=== PATIENT | female | born 1985 | race Caucasian/White ===

== ENCOUNTER → 2018-06-30 14:00 | Outpatient (CLI) | payer BC, SELFPAY ==
[2018-07-06 14:46] LABS: HPV Reflexed? NOT INDICATED
== END ==
PROVIDERS: Visit Provider Obstetrics & Gynecology
DX: Z12.4 Encounter for screening for malignant neoplasm of cervix (principal)
CPT/HCPCS: 88175; G0145

== ENCOUNTER → 2018-07-07 06:27 | Outpatient (CLI) | payer BC, SELFPAY ==
[2018-07-07 07:33] LABS: Hematocrit 43.2 % (37-47); Hemoglobin 14.4 g/dl (12.0-15.0); Mean Corp Hgb Conc 33.3 g/gl (32-36); Mean Corpuscular Hgb 30.1 pg (27.0-32.0); Mean Corpuscular Volume 90.4 fL (81-99); Mean Platelet Vol. 10.4 fl (6.2-12.0); Platelet Count 302 K/mm3 (150-450); RBC Distribution Width SD 42.8 fl (35.1-43.9); Red Blood Count 4.78 M/mm3 (4.2-5.4); White Blood Count 6.4 K/mm3 (4.4-11.0)
[2018-07-07 07:45] LABS: Scan Indicated on CBC? Y/N NO
[2018-07-07 08:02] LABS: Estradiol 48.4 pg/mL; Free T3 2.9 pg/mL (2.18-3.98); T4 Free Direct 0.98 ng/dL (0.76-1.46)
[2018-07-07 08:19] LABS: Homocysteine 6.9 umol/L (3.2-10.7)
[2018-07-07 08:40] LABS: Hemoglobin A1c 5.1 % (4.2-6.3)
[2018-07-08 11:54] LABS: Progesterone Level 0.74 ng/mL (See Comment)
== END ==
PROVIDERS: Visit Provider Obstetrics & Gynecology
DX: N96 Recurrent pregnancy loss (principal)
CPT/HCPCS: 36415; 81241; 82670; 83036; 83090; 84144; 84403; 84439; 84443; 84481; 85027

== ENCOUNTER → 2018-11-28 09:59 | Outpatient (CLI) | payer BC, SELFPAY ==
[2018-11-28 14:21] LABS: Progesterone Level 18.51 ng/mL (See Comment)
[2018-11-28 14:30] LABS: hCG Titer Quant., Serum 2988 mIU/mL (<9 non-preg)
[2018-11-28 15:19] LABS: Chlamydia Trachomatis by PCR Negative (Negative); Neisserai gonorrhoeae by PCR Negative (Negative); Probe Check PASS; Sample Adequacy Control PASS; Specimen Processing Control PASS
== END ==
PROVIDERS: Visit Provider Obstetrics & Gynecology
DX: Z11.3 Encounter for screening for infections with a predominantly sexual mode of transmission (principal)
CPT/HCPCS: 36415; 84144; 84702; 87491; 87591

== ENCOUNTER → 2018-11-30 16:51 | Outpatient (CLI) | payer BC, SELFPAY ==
[2018-11-30 18:06] LABS: hCG Titer Quant., Serum 6376 mIU/mL (<9 non-preg)
== END ==
PROVIDERS: Visit Provider Obstetrics & Gynecology
DX: Z32.01 Encounter for pregnancy test, result positive (principal); Z11.3 Encounter for screening for infections with a predominantly sexual mode of transmission
CPT/HCPCS: 36415; 84702

== ENCOUNTER → 2018-12-26 10:38 | Outpatient (CLI) | payer BC, SELFPAY ==
[2017-07-29 13:21] VITALS: BMI 28.4
[2018-12-26 13:32] LABS: Color, Urine Yellow (Yellow); Glucose, Dipstick Normal (Normal); Ketone-Dipstick Negative (Negative); Leukocyte Esterase-Dipstick Negative /ul (Negative); Nitrite-Dipstick Negative (Negative); Occult Blood-Urine Negative /ul (Negative); Protein-Dipstick Negative (Negative); Specific Gravity, Urine 1.005 (1.002-1.030); Urine Bilirubin Dipstick Negative (Negative); Urine Clarity Clear (Clear); Urine Urobilinogen Normal (Normal)
[2018-12-26 13:33] LABS: Absolute Lymphocyte Count 1.86 X10^3/ul (0.83-4.51); Absolute Neutrophil Count 5.8 X10^3/uL (2.0-7.7); Basophil# 0.02 X10^3/uL; Basophil% 0.2 % (0-1); Eosinophil# 0.07 X10^3/uL; Eosinophils% 0.8 % (0-5); Hematocrit 41.8 % (37-47); Hemoglobin 13.8 g/dl (12.0-15.0); Lymphocyte # 1.86 X10^3/ul (4.0); Lymphocyte % 22.1 % (19-41); Mean Corpuscular Volume 90.9 fL (81-99); Mean Platelet Vol. 10.7 fl (6.2-12.0); Monocyte% 8.3 % (0-10); Neutrophil # 5.75 X10^3/uL (2.7-7.7); Neutrophil % 68.5 % (47-70); Platelet Count 378 K/mm3 (150-450); RBC Distribution Width CV 13.4 % (11.6-14.6); White Blood Count 8.4 K/mm3 (4.4-11.0)
[2018-12-26 13:34] LABS: COTININE Drug Screen Negative (<200 ng/mL); POSITIVE COUNT NO; POSITIVE DIFFERENTIAL NO; POSITIVE MORPHOLOGY NO
[2018-12-26 13:45] LABS: Amphetamine Urine VISTA NEGATIVE (<1000 ng/mL); Barbiturate Urine VISTA NEGATIVE (< 200 ng/mL); Benzodiazepine Urine VISTA NEGATIVE (< 200 ng/mL); Cocaine Urine VISTA NEGATIVE (< 300 ng/mL); Ecstacy Urine VISTA NEGATIVE (< 500 ng/mL); Methadone Urine VISTA NEGATIVE (< 300 ng/mL); PCP Urine VISTA NEGATIVE (< 25 ng/mL); THC Urine VISTA NEGATIVE (< 50 ng/mL); Vista UDS pH Range 6
[2018-12-26 13:53] LABS: Thyroid Stim Hormone (TSH) 1.35 uIU/mL (0.358-3.74)
[2018-12-26 14:31] LABS: HIV - WCH Non-Reactive (Nonreactive)
[2018-12-27 08:07] LABS: HEPATITIS B SURFACE AG Negative (Negative); Hep C Antibodies <0.1 s/co ratio (0.0-0.9)
[2018-12-30 03:11] LABS: Prenatal RPR NONREACTIVE (NONREACTIVE)
== END ==
PROVIDERS: Visit Provider Obstetrics & Gynecology
DX: Z34.81 Encounter for supervision of other normal pregnancy, first trimester (principal)
CPT/HCPCS: 36415; 80307; 81002; 82306; 84443; 85025; 86703; 86762; 86803; 87340

== ENCOUNTER → 2019-03-14 11:07 | Outpatient (CLI) | payer BC, SELFPAY ==
[2019-03-14 14:13] LABS: Vitamin D,25 Hydroxy 26.1 ng/mL (29.95-100.01)
== END ==
PROVIDERS: Visit Provider Obstetrics & Gynecology
DX: E55.9 Vitamin D deficiency, unspecified (principal)
CPT/HCPCS: 36415; 82306

== ENCOUNTER → 2019-05-09 08:44 | Outpatient (CLI) | payer BC, SELFPAY ==
[2019-05-09 11:12] LABS: Hematocrit 36.1 % (37-47); Mean Corp Hgb Conc 33.2 g/gl (32-36); Mean Corpuscular Hgb 29.3 pg (27.0-32.0); Platelet Count 368 K/mm3 (150-450); RBC Distribution Width SD 44.3 fl (35.1-43.9); White Blood Count 8.9 K/mm3 (4.4-11.0)
[2019-05-09 11:13] LABS: Glucose Challenge Gest 1H 50g 112 mg/dL (70-140)
[2019-05-09 11:17] LABS: Scan Indicated on CBC? Y/N NO
== END ==
PROVIDERS: Visit Provider Obstetrics & Gynecology
DX: Z34.82 Encounter for supervision of other normal pregnancy, second trimester (principal)
CPT/HCPCS: 36415; 82950; 85027

== ENCOUNTER → 2019-07-05 17:23 | Outpatient (CLI) | payer BC, SELFPAY | PROVIDERS: Referring Provider Obstetrics & Gynecology; Visit Provider Obstetrics & Gynecology | DX: Z36.85 Encounter for antenatal screening for Streptococcus B (principal) | CPT/HCPCS: 87081 ==

== ENCOUNTER 2019-07-09 13:15 | Inpatient (IN) | payer BC, SELFPAY ==
[2019-07-09 13:40] VITALS: BMI 38.2
[2019-07-09] MEDS: Lactated Ringers 1,000 ML 50 ML IV (13:50)
[2019-07-09 14:04] LABS: Absolute Lymphocyte Count 1.55 X10^3/uL (0.83-4.51); Absolute Neutrophil Count 8.4 X10^3/uL (2.0-7.7); Basophil# 0.03 X10^3/uL; Basophil% 0.3 % (0-1); Eosinophil# 0.03 X10^3/uL; Eosinophils% 0.3 % (0-5); Hematocrit 34.7 % (37-47); Hemoglobin 11.4 g/dL (12.0-15.0); Lymphocyte # 1.55 X10^3/ul (4.0); Lymphocyte % 14.3 % (19-41); Mean Corp Hgb Conc 32.9 g/dL (32-36); Mean Corpuscular Hgb 28.6 pg (27.0-32.0); Monocyte# 0.75 X10^3/uL; Monocyte% 6.9 % (0-10); NRBC Flagged by Analyzer 0 % (0-5); Neutrophil # 8.43 X10^3/uL (2.7-7.7); Neutrophil % 77.5 % (47-70); Platelet Count 354 K/mm3 (150-450); RBC Distribution Width CV 14.5 % (11.6-14.6); RBC Distribution Width SD 45.7 fl (35.1-43.9); Red Blood Count 3.99 M/mm3 (4.2-5.4); White Blood Count 10.9 K/mm3 (4.4-11.0)
[2019-07-09] MEDS: Lactated Ringers 500 ML 999 ML IV (17:29)
[2019-07-09] MEDS: 0.9% Saline Lock 10 ML Syringe IV (17:42)
[2019-07-09] MEDS: fentaNYL-bupivacaine (epidural) 100 ML BAG EPIDURAL ×2 (18:08→22:44)
[2019-07-09] MEDS: Lactated Ringers 1,000 ML 200 ML IV (19:15)
--- NOTE | 2019-07-09 19:31 | PCM.HP.BLA ---
History and Physical Date of Admission: 07/09/19 AGE: 34 PARITY(FPAMETL): 0 0 0 2 0 0 0 WKS GEST: 36 wks + 4 days JAYLIN: 08/02/19 Ped: UNDECIDED THIRD TRIMESTER: 256 DAYS History of This : This is a 34-year-old patient 3 para 0 AB 2 who presents to labor and delivery at 36 weeks and 4 days gestation with spontaneous rupture membrane and in early labor. 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 FOB less than pleased about the ... GENERAL - Denies fever, or chills SKIN - Denies skin changes EYES - Denies visual changes EARS - Denies difficulty hearing NOSE - Denies nasal congestion or bleeding MOUTH - Denies sore throat or difficulty swallowing NECK - Denies pain or swelling RESPIRATORY - Denies shortness of breath or wheezing CARDIOVASCULAR - Denies palpitations or chest pain GASTROINTESTINAL - Denies nausea, vomiting, diarrhea, constipation GENITOURINARY - spotting, cramping MUSCULOSKELETAL - Denies joint or muscle pain NEUROLOGICAL - Denies localized numbness or weakness PSYCHIATRIC - Denies depression or anxiety ENDOCRINE - Denies heat or cold intolerance, weight loss or gain HEMATO-IMMUNOLOGIC - Denies excessive bleeding with cuts PAST HISTORY: Breast/Ovarian/Colon Cancers - Denies Infections - Chicken pox Illnesses - no serious past illnesses Accidents - no injuries of consequence History of Abnormal PAPS - ASCUS, HPV HR POS 09/2012, Neg 03/2013, Neg 03/2014 Hospitalizations - see surgery SURGICAL HISTORY: 1. Tonsilectomy 2. [place] teeth 3. 07/29/[address] Celestina Antonio MENSTRUAL HISTORY: LMP Known?- DefiniteAmount/Duration - 4-5 days, Regularity - Regular, Frequency - monthly days, LMP - 10/10/18 PAST PREGNANCIES: Total Pregnancies - 3; Full Term Pregnancies - 0; Premature - 0; Abortions, Induced - 0; Abortions, Spontaneous - 2; Ectopics - 0; Multiple Births - 0; Living Children - 0 FAMILY HISTORY: PaternalGrandparent - FH: Atrial fibrillation; SOCIAL HISTORY: Alcohol Use - denies drinking Smoking - stopped smoking 01/2015 Diet - balanced Diet Lifestyle - moderate stress lifestyle Exercise - minimal Seat Belt Use - always Employer - [employer] Job Description - Accounting Illicit Drug Use - denies use of street drugs Sexual Activity - multiple sexual partners Hours Worked - 40 hours per week Spouse-Sig Other Name - Skip Donovan Spouse-Sig Other Occupation - Self employed Children Name(s) - Partner has 3 boys Control - PHYSICAL EXAMINATION Height- 62.00 inch CONSTITUTIONAL - NAD, well nourished, and well developed SKIN - No rash, lesions, or ulcers HEENT - Normocephalic, PERRLA, EOMI LYMPH NODES - Palpation of lymph nodes in neck and groins within normal limits LUNGS - CTA x2 without wheezes, crackles or rales CARDIAC - Regular rate and rhythm without rubs, murmurs, or gallops ABDOMEN - Without hepatosplenomegaly, distention, masses, rebound, or guarding; normal bowel sounds; no hernias EXTREMITIES - No edema or calf tenderness NEUROLOGICAL - Cranial nerves II-XII grossly intact PSYCHIATRIC - A and O to time, place, person, mood and affect DETAILED PELVIC EXAM External Genitial Vagina - non-tender without lesions Urethra/Urethral Meatus - non-tender Bladder - non-tender Vagina - vaginal nash are pink and moist without loss of rugae and no evidence of atropy Cervix - gross ROM Uterus -AGA Adnexa - clear without masses or tenderness Antepartum Flow Sheet Highlights: [facility] Jul 02 36 211 132/86 1+ - 36 ? 1 25 -3 [facility] Jun 02 34 200 100/70 1+ - 35 EL[facility] Jun 02 31 190 120/74 tr - 32 - [facility] May 02 30 186 124/82 tr - 30 ELB May 02 27 181 126/82 - - 29 - DS Apr 04 23 178 126/78 tr - 24 ? DS March 04 19 179 130/70 - - 20 ? DS 22 Apr 3 16 175 118/62 - - 18 ? DS Dec 4 12 172 136/66 - - ? DS Dec 4 8 172 128/64 tr - DS Dec 2 9 173 110/64 tr - SHORT ANTEPARTUM NOTE(S): Sep Good FM,Edema increased 2+,GBS Today LARC form signed Jun feeling well. Hands tingling from swelling. Jun reviewed FM, PTL, edema May Good FM,Feeling Well May doing well, glucola today Apr doing well, glucola and inst provided and reviewed 14 March see note Jan see note Dec No problems Dec No problems Dec doing well, NOB rescheduled LONG ANTEPARTUM NOTES: Jul Feeling well; reports active FM; denies nausea, UCs, VB, LOF, CARMONA, RUQ pain or visual changes; bialteral LE edema, + pitting, none noted on hands or face; she did not wear support stockings today, says it does resolve once she is able to put her feetr up for a few hours; GBS swab done todayl discussed warning signs, s/s PTL; RTO 1 week(s)for PNV; Jun Feeling generally well, reports active movement, denies VB, LOF, RUQ pain, CARMONA or visual changes. Does have some bilateral lower extremity edema, wearing support stockings; also reportrs some intermittent tingling in fingertips, works on a computer daily; discussed increasing fluids, hand position during work and sleep for tingling in hands, call if s/s worsen; discussed s/s PTL and s/s to report; GBS at next visit Jun Hgb 12 g/dl. Glucola 112. WNL RTO In 2 wk for PNV. EB May GLucola CBC and repeat Vit D today. Notify of results as available. Reviewed s/sx of PTL. RTO in 2 wk for PNV EB Hgb 12.0 g/dl. and glucola 112. Vit D was NOT redrawn. Unable to run off blood in lab. Advised by phone of all and recommend NOT redraw, but may do this if pa requests. Vit D level inc from 8 to 26 (normal 30-100) and was given 50,000 IU twice weekly. Rec. continue OTC VIt D at 2000 IU daily EB Apr No complaints. Good movement. GCT and CBC next visit. 22 March Angie calling @ 21 wks miserable with sinus congestions, so stuffy, can barely breathe thru her nose. Drainage is mostly clear, occas a little yellow. Lots of drainage down back of throat, making her gag and vomit. T 99.8 on Sat, went to urgent care--rapid strep was negative. No sore throat now, Temp is 97.1. Has tried Benadryl @ night, Claritin during the day, no relief. Advised trying plain Mucinex, saline nasal spray, use cough drops, warm tea w/lemon for cough from sinus drainage, no dairy or sugar in diet as both increase mucous production. Can she use Afrin, once q 12 hrs? It is a Cat C. Advised I would check with you. 14 March Anatomical US performed today with no anomalies noted. There is normal growth, placentation, and umbilical cord. Feels movement. Vitamin D level repeated today. Jan Anatomical US scheduled for next visit. Jan Declines genetics testing, no CF. She is not sure if she has felt FM or not yet. Reveiwed expected FM over the next 4-6 wks. Voicing no concerns today. kbm Dec Doing well. No complaints. No bleeding. labs normal. O+ blood type. Dec Doing well. One episode of spotting last week. US c/w dating with good heart beat. NOB nurse visit and labs done today. Dec Angie is here for NOB nurse visit with JAYLIN Aug 02, 2019 planning a vag del at [facility], unsure of epidural or ped care post discharge. She does plan to breastfeed. She is a G 3 P 0 who works FT at [employer] in [employer]. She lives in her own home. FOB is Skip, lives separately with three teen sons and is less than pleased about this . Angie said he was good with the first she lost but w the second loss told her he didn't want more children. States he knew sex was unprotected but now He's distant. Her parents are unaware of the pg but she plans to inform them in a few weeks and knows they'll be very supportive. She has excellent FMLA coverage at work, a good job and her own home. She says she can do this without him if she has to. Tearful during this discussion. Angie has NKA to drugs, food or latex. She has some mild seasonal allergies in spring and summer. Her diet is fairly balanced but calcium intake is quite low. She drinks about one cup of coffee daily and at least two quarts of water. She quit smoking in mid Nov 2018 upon realizing the . No street drug history except marijuana and last use was about 18 mo ago. She drinks alcohol socially but not in pg. 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 Enc walking 20 min q day. Genetic Screening form completed noting only her Prometrium. She declines AFP and CF tests. Warning signs in pg discussed as well as reaching office after hours, otc meds ok to take, lifting restriction of 20-25 #, importance of protein in diet, wearing seatbelt low on her abd w understanding voiced. She has a copy of What to Expect. She's had chickenpox and they have no cats though she is aware of litter box issues. US done and routine labs drawn adding Vit D level d/t her chronic low milk intake. Office Childbirth and BF classes discussed and suggested. Enc to call w any concerns. Visit lasted just over one hour. Joaquin SIMON. Dec Doing well. Some light spotting. Continues to take progesterone supplements as directed. US today with pole with normal heart beat. EDC established by US today. Flying to [place] today--instructions given to stay well hydrated and stretch legs periodically. Nov Angie is 33 yrs old here for Missed Menses. FOB same as all of her pregnancies, Skip Donovan, who has 3 boys of his own. By LMP 10/10/18, she could be 7 wks, JAYLIN 07/17/19. Reports periods occurring q 4-5 wks. Hx 2 prior SAB's, both 6-7 wks. D+C with 1st. Reporting breast tenderness, which has started to subside, very light pink spotting beginning in Sat, occassional cramping. She is tearful, thinking she is miscarrying again. UPT positive here. Taking a daily PNV. Stopped smoking with knowledge of . Reviewed importance of hydration. Most recent pap 06/30/18, negative. Hx Negative Factor V Leiden. Still working in [employer]. Brochure with otc meds given this morning, but will wait on book as she is not ready to take this yet. Advised no use of NSAIDS. kbm PRIOR HISTORY: 1 07/29/17 8 wks 0 hrs Sab 2 04/01/18 4 wks 0 hrs Vag Number 1 baby complications-->: D Number 2 baby complications-->: VERY EARLY. ALLERGIES: NKDA MEDICATIONS: DHA 200 mg capsule Vitamin D2 50,000 unit capsule Phone Messages (past 60 days)- 1. DATE:07/07/19 11:16:05FROM:LEESATO:MESSAGE:Lab calling to report GBS negative but did grow Group G. Per Dr Traylor that did not need to be on report. FYI only. LMT 2. DATE:06/19/19 15:48:23FROM:EDWINA:MESSAGE:form signed and faxed back. jlb 3. DATE:06/19/19 11:06:17FROM:GAILTO:MESSAGE:Form for maturnity support belt printed and to you to sign. Thank you. 4. DATE:06/19/19 11:00:59FROM:SONYAWTO:MESSAGE:Please see Rx. Thank-you! 5. DATE:05/29/19 09:14:32FROM:JUDITHTO:MESSAGE:Form from Maternity Compression from [facility] for Back/Pelvic Support Brace, signed by EB and faxed to [phone]. AUDRA 6. DATE:05/26/19 10:15:18FROM:EDWINA:MESSAGE:Form printed and placed at EB's desk for signature when she returns. jlb 7. DATE:05/26/19 10:08:03FROM:TAMMYTO:MESSAGE:see attached Rx. tkg 8. DATE:05/11/19 14:45:04FROM:EDWINA:MESSAGE:form signed and faxed back. jlb 9. DATE:05/11/19 12:35:00FROM:EDWINA:MESSAGE:Form printed and placed at Dr Traylor desk for signature and will need faxed back. jlb 10. DATE:05/11/19 12:20:26FROM:SONYAWTO:MESSAGE:Please see Rx. Thank-you! Labs for : ANGIE WHITMAN since 11/05/2018 ORDER DATEIN DESCRIPTION VALUE UNITS RANGE A+ COMMENT TYPE AND SCREEN 07/09/19 Reason for Type AND Screen/Red Cells: [facility]~[address] [place], [address]~ BLOOD TYPE GEL O POSITIVE N ANTIBODY SCREEN NEGATIVE N CBC W/DIFF, AUTOMATED 07/09/19 NOTE Original Ordering Provider: Ray Marie WBC 10.9 K/mm3 4.4-11.0 RBC 3.99 M/mm3 4.2-5.4 L HGB 11.4 g/dL 12.0-15.0 L HCT 34.7 % 37-47 L MCV 87.0 fL 81-99 MCH 28.6 pg 27.0-32.0 MCHC 32.9 g/dL 32-36 RDW CV 14.5 % 11.6-14.6 RDW SD 45.7 fl 35.1-43.9 H PLT 354 K/mm3 150-450 MPV 11.0 fl 6.2-12.0 NEUT% 77.5 % 47-70 H LY% 14.3 % 19-41 L MONO% 6.9 % 0-10 EO% 0.3 % 0-5 BASO% 0.3 % 0-1 IM GRAN % 0.700 % 0.0-0.9 IG% - Immature Granulocytes (promyelocytes, myelocytes and metamyelocytes) > 1% indicates that a LEFT SHIFT is Present. ABSOLUTE NEUT 8.4 X10 3/uL 2.0-7.7 H ABSOLUTE LYMPH 1.55 X10 3/uL 0.83-4.51 NRBC, FLAGGED 0 % 0-5 CULTURE, GROUP B STREPTOCOCCUS 07/05/19 NOTE Original Ordering Provider: Ray Marie ANDREA Culture Group B Beta Streptococcus is not isolated. Reviewed by RAY CBC-COMPLETE BLOOD CNT NO DIFF 05/09/19 NOTE Original Ordering Provider: Pamela Traylor WBC 8.9 K/mm3 4.4-11.0 RBC 4.10 M/mm3 4.2-5.4 L HGB 12.0 g/dl 12.0-15.0 HCT 36.1 % 37-47 L MCV 88.0 fL 81-99 MCH 29.3 pg 27.0-32.0 MCHC 33.2 g/gl 32-36 RDW CV 14.0 % 11.6-14.6 RDW SD 44.3 fl 35.1-43.9 H PLT 368 K/mm3 150-450 MPV 11.0 fl 6.2-12.0 Reviewed by PAMELA GLUCOSE CHALLENGE GEST 1H 50G 05/09/19 NOTE Original Ordering Provider: Pamela Traylor GLU GEST 50G 1H 112 mg/dL 70-140 Reviewed by PAMELA VITAMIN D,25 HYDROXY 03/14/19 NOTE Original Ordering Provider: Celestina Antonio VITAMIN D 25-OH 26.1 ng/mL 29.95-100.01 L Vitamin D 25(OH) Status Range Deficiency <20 ng/mL (50nmol/L) Insufficiency 20 - 30 ng/mL (50 - 75 nmol/L) Sufficiency 30 - 100 ng/mL (75 - 250 nmol/L) Toxicity >100 ng/mL (>250 nmol/L) Reviewed by CELESTINA RPR 12/26/18 NOTE Original Ordering Provider: Celestina Antonio RPR NONREACTIVE NONREACTIVE Reviewed by CELESTINA HEPATITIS C ANTIBODIES 12/26/18 NOTE Original Ordering Provider: Celestina Antonio HEP C AB <0.1 s/co ratio 0.0-0.9 Negative: < 0.8 Indeterminate: 0.8 - 0.9 Positive: > 0.9 The CDC recommends that a positive HCV antibody result be followed up with a HCV Nucleic Acid Amplification test (743361). Reviewed by CELESTINA HEPATITIS B SURFACE AG 12/26/18 NOTE Original Ordering Provider: Celestina Antonio HB SURF AG Negative Negative Performed at: [address] [id number] Aboriginal Education Worker Coordinator: Antoine Sosa PhD, Phone: [phone] Reviewed by CELESTINA T AND S-NO CHARGE W/PNP 12/26/18 Reason for Type AND Screen/Red Cells: Surgery? [facility]~[address] [place] [place], [address]~ BLOOD TYPE GEL O POSITIVE N AB SCREEN GEL NEGATIVE N Reviewed by CELESTINA URINALYSIS, ROUTINE (DIPSTICK) 12/26/18 NOTE Original Ordering Provider: Celestina Antonio COLOR Yellow Yellow CLARITY Clear Clear GLUCOSE, UR Normal mg/dl Normal BILIRUBIN URINE Negative mg/dL Negative KETONE UR Negative mg/dl Negative SP.GR. DIPSTX 1.005 1.002-1.030 PH UR 7.0 5.0 - 8.0 PROT DIPSTX Negative mg/dl Negative UROBILI Normal mg/dl Normal NITRITE UR Negative Negative OCCULT BLOOD-UR Negative /ul Negative LEUK ESTERASE Negative /ul Negative Reviewed by CELESTINA HIV - [facility] 12/26/18 NOTE Original Ordering Provider: Celestina Antonio HIV [facility] Non-Reactive Nonreactive Reviewed by CELESTINA VITAMIN D,25 HYDROXY 12/26/18 NOTE Original Ordering Provider: Celestina Antonio VITAMIN D 25-OH 8.0 ng/mL 29.95-100.01 L Vitamin D 25(OH) Status Range Deficiency <20 ng/mL (50nmol/L) Insufficiency 20 - 30 ng/mL (50 - 75 nmol/L) Sufficiency 30 - 100 ng/mL (75 - 250 nmol/L) Toxicity >100 ng/mL (>250 nmol/L) RUBELLA IGG 12/26/18 NOTE Original Ordering Provider: Celestina Antonio RUBELLA IGG 12.0 IU/mL Antibody results Interpretation of Immune Status < 5 IU/ml Presumed Non-immune 5 - < 10 IU/ml Equivocal > or = 10 IU/ml Presumed Immune Reviewed by CELESTINA THYROID STIM HORMONE (TSH) 12/26/18 NOTE Original Ordering Provider: Celestina Antonio TSH 1.35 uIU/mL 0.358-3.74 Reviewed by PAMELA NICOTINE URINE DRUG SCREEN 12/26/18 NOTE Original Ordering Provider: Celestina Antonio TO BE CONFIRMED CONFIRMATORY TESTING FOR ALL POSITIVE URINE DRUG SCREEN RESULTS WILL ONLY BE SENT OUT UPON PHYSICIAN ORDER. The results of Urine Drug Screen methods provide only preliminary analytical test results. A more specific alternate chemical method must be used in order to obtain a confirmed analytical result. Gas chromatography/mass spectrometery (GC/MS) is the preferred confirmatory method. Clinical consideration and professional judgement should be applied to any drug of abuse test result, particularly when preliminary positive results are used. COT DRG SCREEN Negative <200 ng/mL Cotinine is the first-stage metabolite of Nicotine. Reviewed by PAMELA URINE DRUG SCREEN (VISTA) 12/26/18 NOTE Original Ordering Provider: Celestina Antonio TO BE CONFIRMED CONFIRMATORY TESTING FOR ALL POSITIVE URINE DRUG SCREEN RESULTS WILL ONLY BE SENT OUT UPON PHYSICIAN ORDER. VISTA Urine Drug Screen methods provide only preliminary analytical test results. A more specific alternate chemical method must be used in order to obtain a confirmed analytical result. Gas chromatography/mass spectrometery (GC/MS) is the preferred confirmatory method. Clinical consideration and professional judgement should be applied to any drug of abuse test result, particularly when preliminary positive results are used. URINE TCA TESTING MUST BE ORDERED SEPARATELY. USE TEST MNEMONIC: [facility] UDS PH 6 AMPHETAMINES NEGATIVE <1000 ng/mL BARBITIURATES NEGATIVE < 200 ng/mL BENZODIAZIPINE NEGATIVE < 200 ng/mL COCAINE NEGATIVE < 300 ng/mL ECSTACY NEGATIVE < 500 ng/mL METHADONE NEGATIVE < 300 ng/mL OPIATES NEGATIVE < 300 ng/mL PCP NEGATIVE < 25 ng/mL THC NEGATIVE < 50 ng/mL Reviewed by PAMELA CBC W/DIFF, AUTOMATED 12/26/18 NOTE Original Ordering Provider: Celestina Antonio WBC 8.4 K/mm3 4.4-11.0 RBC 4.60 M/mm3 4.2-5.4 HGB 13.8 g/dl 12.0-15.0 HCT 41.8 % 37-47 MCV 90.9 fL 81-99 MCH 30.0 pg 27.0-32.0 MCHC 33.0 g/gl 32-36 RDW CV 13.4 % 11.6-14.6 RDW SD 44.0 fl 35.1-43.9 H PLT 378 K/mm3 150-450 MPV 10.7 fl 6.2-12.0 NEUT% 68.5 % 47-70 LY% 22.1 % 19-41 MONO% 8.3 % 0-10 EO% 0.8 % 0-5 BASO% 0.2 % 0-1 IM GRAN % 0.100 % 0.0-0.9 IG% - Immature Granulocytes (promyelocytes, myelocytes and metamyelocytes) > 1% indicates that a LEFT SHIFT is Present. ABSOLUTE NEUT 5.8 X10 3/uL 2.0-7.7 ABSOLUTE LYMPH 1.86 X10 3/ul 0.83-4.51 Reviewed by PAMELA HCG TITER QUANT., SERUM 11/30/18 NOTE Original Ordering Provider: Celestina Antonio HCG QUANT. 6376 mIU/mL <9 non-preg H Reviewed by CELESTINA HCG TITER QUANT., SERUM 11/28/18 NOTE Original Ordering Provider: Celestina Antonio HCG QUANT. 2988 mIU/mL <9 non-preg H Reviewed by CELESTINA PROGESTERONE LEVEL 11/28/18 NOTE Original Ordering Provider: Celestina Antonio PROGESTERONE 18.51 ng/mL See Comment Progesterone Reference Table: UNITS Female: Follicular 0.15 - 1.40 ng/mL Luteal 3.34 - 25.56 ng/mL Mid-luteal 4.44 - 28.03 ng/mL Postmenopausal 0.0 - 0.73 ng/mL : 1st Trimester 11.22 - 90.00 ng/mL 2nd Trimester 25.55 - 89.40 ng/mL 3rd Trimester 48.40 -422.50 ng/mL Reviewed by CELESTINA CT/[facility] BY PCR 11/28/18 NOTE Original Ordering Provider: Celestina Antonio [facility] PCR Negative Negative NG BY PCR Negative Negative Reviewed by CELESTINA PROVIDER SIGNATURE ( REQUIRED) Impression and Plan: 36+ week intrauterine with spontaneous rupture of membrane in early labor. Expect spontaneous vaginal delivery.
[2019-07-09] MEDS: Mag Hydrox/Al Hydrox/Simeth 30 ML UDC PO (19:51)
[2019-07-09] MEDS: Betamethasone/Betamethasone 30 MG/5 ML Vial 12 MG IM (21:46)
[2019-07-10] VITALS (13 sets, daily range): BP systolic 109–137; BP diastolic 62–77; PULSE 98–120; RESP 15–18; TEMP 36.8–37.1; O2SAT 94–98
[2019-07-10] MEDS: Lactated Ringers 1,000 ML IV (00:51)
[2019-07-10] MEDS: Mag Hydrox/Al Hydrox/Simeth 30 ML UDC PO ×4 (01:01→14:33)
[2019-07-10] MEDS: Oxytocin 30 units/NS 500 ml 30 UNITS/500 ML IV.SOLN IV (03:38)
[2019-07-10] MEDS: fentaNYL-bupivacaine (epidural) 100 ML BAG EPIDURAL ×3 (04:04→13:18)
[2019-07-10] MEDS: Lactated Ringers 1,000 ML 200 ML IV ×2 (06:21→11:58)
--- NOTE | 2019-07-10 07:35 | PCM.PN.BLA ---
Progress Note LABOR PROGRESS NOTE -- labor 36 5/7 wk EGA betamethasone given Comfortable with epidural. lying on R side and starting to feel just a little at LLQ (position change needed) AVSS Pitocin augmentation EFM/IFM: 130-140s avg variaiblity accels. Occasional variable, occasional late UCs ? adequacy CX last check A/P; 36 5/7 wk EGA labor. Pitocin augmentation, but ? adequacy of UCs. Inc pitocin per protocol. watch progress, descent, tolerance of labor. consider amnioinfusion prn.
--- NOTE | 2019-07-10 12:58 | PN_ITS ---
Progress Note LABOR PROGRESS NOTE Comfortable w/ Epidural AVSS Pitocin turned down to 6 mIU/min 2/2 FHR with late decelerations EFM/IFM 140-150s avg variability. Accels. occasional lates, resolved with dec Pitocin UCs q 4-12 or 13 mins. CX: 9/90/-1 per last RN check A/P: 36 5/7 wk EGA labor. PCN for labor. Betamethasone given . Con tinue Pitocin prn to adequate mVUs. Watch progress, descent and tolerance of labor. narrow pelvis noted by nursing staff.
[2019-07-10] MEDS: Cefazolin 2 GM in 0.9% Normal Saline 100 ML IV (16:20)
--- NOTE | 2019-07-10 16:59 | DCINST_ITS ---
Discharge Diet: No Restrictions Discharge Activity: May not drive while taking narcotic pain medications., May Shower, May Take a Tub Bath May resume sexual activity in: 4-6 weeks Lifting Restrictions: 20 pounds Additional Activity Instructions:: Nothing in the vagina for 4-6 weeks. You may return to work/school in 6 weeks. Change Dressing in (Days):: 7 Remove Dressing in (days):: 7 Cleanse incision/area with: Soap & Water, Keep Dressing Clean & Dry Additional Instructions: If you experience any of the following, contact your healthcare provider. * Bleeding that soaks a pad every hour for 2 hours * Fever 100.4 or higher * Unrelieved incision or abdominal pain * Swelling, redness, discharge or bleeding from your incision * Problems urinating (including inability to urinate or burning while urinating). * Visual changes * Severe headache * Flu-like symptoms * Pain or redness in one of both of your breasts * Pain, warmth, tenderness or swelling in your legs, especially the calf area * Frequent nausea and vomiting * Symptoms of depression or anxiety If you experience any of the following, call 911 or go to the nearest Emergency Room. * Chest pain * Problems breathing * Seizure activity * Partial or complete paralysis of a body part, slurred speech, weakness or drooping of the face, or a sudden inability to walk or hold your balance Allergies/Adverse Reactions: Allergies No Known Allergies Allergy (Verified 07/28/17 13:36) Medications to take at Discharge Ibuprofen [Motrin] 800 mg PO TID PRN PRN #30 tablet 07/29/17 Oxycodone [Oxyir] 5 mg PO Q4H PRN PRN #10 tablet 07/29/17 Docusate Sodium [Colace] 100 mg PO BID #30 cap 07/10/19 Naproxen [Naprosyn] 250 - 500 mg PO TID PRN PRN #30 tab 07/10/19 Oxycodone [Oxyir] 5 - 10 mg PO Q6H PRN PRN 3 Days #15 tablet 07/10/19 Polyethylene Glycol 3350 [Miralax] 17 gm PO DAILY PRN #14 packet 07/10/19 The following prescriptions were given: Docusate Sodium [Colace] 100 mg PO BID #30 cap Transmission Status: Pending to [facility] Polyethylene Glycol 3350 [Miralax] 17 gm PO DAILY PRN #14 packet PRN Reason: Constipation Transmission Status: Pending to [facility] Naproxen [Naprosyn] 250 - 500 mg PO TID PRN PRN #30 tab PRN Reason: Mild-Mod Pain (1-03/10) Transmission Status: Pending to [facility] Oxycodone [Oxyir] 5 - 10 mg PO Q6H PRN PRN 3 Days #15 tablet PRN Reason: Mod-Severe Pain (-08/10) Transmission Status: Sent to [facility] Follow-Up: Call to make an appointment with your doctor for an incision check in 1-2 weeks. You will also need a 6 week post- follow up appointment. Test results from this visit will be discussed in further detail at your follow- up appointment, if applicable. Please Follow Up With: Pamela Traylor MD - [phone] When: Call to make an appointment for an incision check in 2 weeks. Proposed Discharge Date: 07/13/19
--- NOTE | 2019-07-10 17:01 | PCM.OPRPT ---
Delivery Classification: DALLAS Final JAYLIN: 08/02/19 Final JAYLIN Source: US <20 weeks Gestational age: 36 Weeks and 5 Days windlace machine operator: Naz Hebert Date of Procedure: 07/10/19 Pre-Operative Diagnosis: 36 5/7 wk Failure to progress (arrest at 9 cm) Post-Operative Diagnosis: Same Indications: Failure to progress for 6 hr, with arrest of dilation at 9 cm Description of Procedure: Narrative account: After the risks, benefits and alternatives of the procedure were reviewed with the patient, informed consent was obtained. The patient was taken to the Operating room with an IV running, Lake catheter in place, and epidural catheter in place. The epidural was not working and was removed. She was placed in a seated position on the operating table for placement of the spinal. Once the spinal had been administered, she was briefly frog-legged for vaginal vault prep, and then repositioned to dorsal supine position with leftward displacement of the uterus, and prepped and draped in the usual sterile fashion. Once the spinal was deemed adequate, a Pfannenstiel skin incision was created using the knife. The incision was carried down to the rectus fascia using the knife. The fascia was nicked in the midline. The fascial incision was extended bilaterally using curved Maldonado scissors. The superior aspect of the fascial incision was grasped with Monica clamps and tented up and the underlying rectus abdominal muscles were dissected free. In a similar manner, the inferior aspect of the facial incision was grasped with Monica clamps tented up and the underlying rectus abdominal muscles were dissected free. The rectus abdominis muscles were in the midline and the peritoneum was identified and entered by blunt dissection high in the incision. The peritoneum was stretched laterally and a bladder blade was inserted. A bladder flap was created along the lower uterine segment with Metzenbaum scissors . The uterine incision was then created using Metzenbaum scissors. The operators fingertips were used to extend the uterine incision by blunt dissection in a caudad- cephalad orientation . Clear fluid was noted at amniotomy. The vertex was then delivered atraumatically through the incision. The OP and nares were bulb suctioned on the abdomen. The shoulders delivered easily . The cord clamped x two and cut. And the infant was handed off to the nurse awaiting delivery after briefly showing her to her mother and grandmother. The baby had a spontaneous, vigorous cry. The placenta was then delivered from the fundal position. The uterus was exteriorized and cleared of clots and debris . The uterine incision was repaired with 1 Vicryl in a running locked fashion. A second imbricating layer was then placed, using 1 Monocryl in running nonlocked fashion. Bovie cautery was used to treat any bleeding areas . Excellent hemostasis was noted. At this point the uterus was returned to the abdominal cavity. The gutters were cleared of clots and debris and the incision at the uterus was inspected. Surgicel powder was applied along the entire incision for continued hemostasis. Excellent hemostasis was noted. The peritoneal edges were reapproximated in the midline with a series of interrupted vertical mattress stitches of 1 Vicryl. Surgicel was applied to this layer. Excellent hemostasis was noted at the subfascial space Surgicel was dusted over this layer as well. The fascia was closed in a running nonlocked fashion with a Stratofix. The Subcutaneous fatty tissue was Bovie cauterized as needed for hemostasis. Surgicel was liberally dusted at this layer to prevent seroma formation. This layer was then reapproximated in a single layer closure of running 3-0 Vicryl to eliminate space. The skin edges were closed in a Subcuticular stitch of 4-0 Monocryl. The incision was cleansed. Cavilon, Steristrips, and Mepilex dressing were applied to the skin . The patient was then transferred to the recovery room bed in stable condition after tolerating the procedure well. Sponge, lap, needle and instrument counts correct times two. Medications given preop and intraoperatively included: Ancef 2 gm and Azithromycin 500 mg IV (for SROM) were given guest relations coordinator to the operating room. The patient also received Pitocin given IV after cord clamp, and Toradol 30 mg IV times one. For a complete listing of medications given preop and intraoperatively, please see the anesthesia record. Amniotic Membrane Rupture Type: Spontaneous Amniotic Fluid Description: Clear Placenta Disposition: [facility] Specimen(s) sent to pathology: cord gases, blood type Drain: Lake to straight drain Fluids Replaced: LR Cord Entanglement: None Cord Vessel Description: 3 Vessels Infant Gender: Female (1 minute): 8 (5 minute): 9 Delayed cord clamping: No Antibiotic Given: Ancef 2 grams IV x1 Complications: None - Admit VTE Documentation VTE Present on Admission: No VTE Mechan Device Prophylaxis: SCD's VTE Pharm Prophylaxis ordered?: No
[2019-07-10] MEDS: Oxytocin 30 units/NS 500 ml 30 UNITS/500 ML IV.SOLN 167 UNITS IV (17:20)
[2019-07-10] MEDS: Ketorolac 30 MG/ML Syringe IV (19:01)
[2019-07-10] MEDS: Ondansetron 4 MG/2 ML Vial IV (19:12)
[2019-07-10] MEDS: Lactated Ringers 1,000 ML 100 ML IV (20:25)
[2019-07-11] VITALS (12 sets, daily range): BP systolic 94–135; BP diastolic 54–81; PULSE 92–108; RESP 16–20; TEMP 36.6–37.2; O2SAT 92–99
[2019-07-11] MEDS: 0.9% Saline Lock 10 ML Syringe IV ×5 (00:47→23:45)
[2019-07-11] MEDS: Ketorolac 30 MG/ML Syringe IV ×4 (00:47→18:14)
[2019-07-11 06:33] LABS: Hematocrit 23.5 % (37-47); Hemoglobin 7.7 g/dL (12.0-15.0); Mean Corp Hgb Conc 32.8 g/dL (32-36); Mean Corpuscular Hgb 28.5 pg (27.0-32.0); Mean Platelet Vol. 10.6 fl (6.2-12.0); Platelet Count 235 K/mm3 (150-450); RBC Distribution Width CV 15.2 % (11.6-14.6); RBC Distribution Width SD 47.8 fl (35.1-43.9); White Blood Count 14.2 K/mm3 (4.4-11.0)
[2019-07-11] MEDS: Lactated Ringers 1,000 ML 100 ML IV (06:41)
--- NOTE | 2019-07-11 07:45 | PCM.PN.OB ---
Subjective: POD#1 Primary C section Doing well. Nursing. Pain control OK. Minimal bleeding. Would like to shower. Objective: sitting up in bed, nursing baby. - Physical Exam General: Alert, Oriented x3, Cooperative, No apparent distress HEENT: Atraumatic, EOMI Neck: Supple Abdomen: Soft - Fundus firm NT at umbilicus. Upper abdomen softly distended and tympanitic Skin: Incision - Mepilex dressing CDI. Psych/Mental Status: Normal Affect Vital Signs Temp Pulse Resp BP Pulse Ox 98.3 F 96 18 94/54 L 93 /08/19 01:15 07/11/19 06:15 07/11/19 06:15 07/11/19 03:15 07/11/19 06:15 Oxygen Delivery Method Room Air Weight: 95 kg Body Mass Index (BMI) 38.2 Intake and Output for Last 24 Hours //07/10/19 07/11/19 23:59 23:59 23:59 Intake Total 2195.00 / 2195.00 6366.74 / 6366.74 1800 / 1800 Output Total 1850 / 1850 350 / 350 Balance 2195.00 / 2195.00 4516.74 / 4516.74 1450 / 1450 Laboratory Tests Past 24 Hrs 07/11/19 06:20 WBC 14.2 H RBC 2.70 L Hgb 7.7 L Hct 23.5 L MCV 87.0 MCH 28.5 MCHC 32.8 RDW Std Deviation 47.8 H RDW Coeff of Tram 15.2 H Plt Count 235 MPV 10.6 Medical Necessity - Tobacco Use Smoking Status: Former smoker Assessment/Plan POD#1 Primary C section. Stable postop. Inc diet and activity as tolerated. D/C Lake later today for voiding trial. S/L IV for continued Toradol. May shower Postop acute blood loss anemia. Iron daily Continue routine postop care.
[2019-07-11] MEDS: Ferrous Sulfate 325 MG Tablet PO (12:08)
--- NOTE | 2019-07-11 15:20 | CASEMGMT ---
Social Work Referral Date: 07/11/19 Date of Assessment: 07/11/19 Reason for Consult: Mother of baby (MOB) with history of THC usage Informant: Chart, MOB, Nursing staff. Personal Status Mentation: MOB alert and oriented x3 Present during assessment: MOB and MOB?s mother Hx : 3 Hx Para: 0 Gender: Female Infant Name: Corina Donovan (1min): 8 (5min): 9 Care: Adequate Alleged father: Kelby Donovan Alleged father involved: ?It is complicated? Length of Relationship with alleged father of baby: 7 years FOB Mental Health/AOD/Domestic Violence Hx: MOB denies any history of mental health, abuse, or substance abuse for father of baby (FOB). FOB Employment: Self-Employed. Number of Children in the home: This will be first child for MOB. Custody Comments: This is first child for MOB. FOB has three other children ages, 12, 15, and 17. Living Arrangements: MOB lives alone in own home with plan for infant to discharge to home with MOB. FOB has own home where FOB lives with his three sons. 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 MOB stating to feel safe with FOB and to have support if FOB is ?not in the picture.? MOB stating that was not planned but has been accepted by MOB. MOB stating to have had two miscarriages in the past and that FOB ?had a hard time with this.? MOB stating that FOB was not initially excited about infant and was planning to not come to the hospital, but FOB did end up coming to the hospital and has held and been around infant. MOB stating to be hopeful that FOB will be supportive of and develop a connection. MOB stating that FOB?s three son?s did come by the hospital yesterday and were excited to see infant. Supports: MOB stating main support system is MOB?s parents. MOB identifying FOB as a support as well. Plan is for MOB?s mother to watch when MOB returns to work. Transportation: MOB denies any transportation concerns. Substance Abuse Hx and Current Pattern of Use MOB denies any current substance abuse, Alcohol, Methamphetamine, Tobacco, Cocaine, Marijuana, Prescriptions Drugs and Heroin. MOB is stating to have used THC ?in [employer]? but none since. MOB noted to have a negative tox screen on 2018 and no other tox screen collected. Mental Health Hx and Current Status MOB denies any mental health diagnosis or concerns Items/Skills List for Infants Care Supplies: MOB stating to have all needed supplies (crib, car seat, infant clothing etc.) Bonding With Infant: MOB stating to have a connection with infant and to be ?excited? that is here. Observed Maternal/Paternal Child interaction: MOB holding during assessment. MOB supporting appropriately. MOB stating that breast feeding is ?going well.? Emotional Assessment: MOB presenting with a positive and engaged affect. MOB responding to questions and asking questions appropriately. Control: MOB stating plan to have ?some sort? of control. Resources MOB declining Help Me Grow referral, but information provided for self-referral. MOB provided with resources on safe sleeping, [facility] general resource list, and depression. Assessment: Met with MOB, infant and MOB?s mother in room. This home health care social worker introduced self as well as home health care social worker role. MOB agreeable to meeting with this home health care social worker and okay with MOB?s mother remaining in room during conversation. Majority of assessment was discussing relationship dynamics between MOB and FOB. MOB stating to have a positive support system if FOB is out of the picture, but MOB is hopeful that FOB will ?step-up? and be apart of infants life. This home health care social worker broached topic of depression, MOB educated on signs and symptoms and provided with information. MOB receptive and voicing understanding. All questions answered. Intervention: No referrals indicated at this time. Plan: to discharge to home with MOB. TORREY Davis
[2019-07-12 02:05] VITALS: BP 131/85; PULSE 88; RESP 16; TEMP 37; O2SAT 97
--- NOTE | 2019-07-12 07:39 | PCM.PN.OB ---
Subjective: POD#2 Primary C/S Doing well. Baby with IV abx for prolonged SROM and cultures pending. Nursing. No concerns voiced. Plans to stay Objective: Sitting up in chair nursing. - Physical Exam General: Alert, Oriented x3, Cooperative, No apparent distress HEENT: Atraumatic, EOMI Neck: Supple Psych/Mental Status: Normal Affect Vital Signs Temp Pulse Resp BP Pulse Ox 98.6 F 88 16 131/85 H 97 07/12/19 02:05 07/12/19 02:05 07/12/19 02:05 07/12/19 02:05 07/12/19 02:05 Oxygen Delivery Method Room Air Weight: 95 kg Body Mass Index (BMI) 38.2 Intake and Output for Last 24 Hours 07/10/19 07/11/19 07/12/19 23:59 23:59 23:59 Intake Total 6366.74 / 6366.74 2331.67 / 2331.67 Output Total 1850 / 1850 750 / 750 Balance 4516.74 / 4516.74 1581.67 / 1581.67 Microbiology Past 72 Hours 07/10/19 17:00 Enteric Bacteriology - Final Stool Medical Necessity - Tobacco Use Smoking Status: Former smoker Assessment/Plan POD#2 Primary C section. Stable postop. Postop acute blood loss anemia. Iron daily Continue routine postop care.
[2019-07-12 08:25] VITALS: BP 130/78; PULSE 70; RESP 16; TEMP 37
[2019-07-12] MEDS: Ferrous Sulfate 325 MG Tablet PO (11:47)
[2019-07-12 14:33] VITALS: BP 124/74; PULSE 70; RESP 16; TEMP 37.3
[2019-07-12] MEDS: Naproxen 250 MG Tablet PO ×2 (20:12)
[2019-07-12 20:15] VITALS: BP 137/87; PULSE 88; RESP 18; TEMP 37.1; O2SAT 98
[2019-07-13 01:10] VITALS: BP 128/71; PULSE 85; RESP 18; TEMP 36.8; O2SAT 95
[2019-07-13] MEDS: Naproxen 250 MG Tablet PO ×2 (05:13→14:16)
[2019-07-13 09:12] VITALS: BP 126/79; PULSE 77; RESP 16; TEMP 36.9; O2SAT 96
--- NOTE | 2019-07-13 11:27 | PCM.PN.OB ---
Subjective: Feeling well, pain well controlled; well with occasional supplementation; infant stabilizing, may be discharged home today - Physical Exam General: Alert, Oriented x3, Cooperative, No apparent distress HEENT: PERRLA, EOMI Oral: Moist Mucosa Neck: Supple Lungs: Clear to auscultation Cardiovascular: Regular rate, Regular Rhythm Abdomen: Bowel Sounds Present, Soft, Non Tender - Fundus U/1, midline, lochia scant Extremities: No Calf Tenderness, Peripheral Pulses Normal Skin: Incision - Mepilex dressing D/I Neurological: Cranial nerves II-XII grossly intact, Deep Tendon Reflexes 2+/4 and Symmetrical Psych/Mental Status: Normal Affect, Appropriate, Alert and oriented to time, place, person, mood and affect Vital Signs Temp Pulse Resp BP Pulse Ox 98.4 F 77 16 126/79 H 96 07/13/19 09:12 07/13/19 09:12 07/13/19 09:12 07/13/19 09:12 07/13/19 09:12 Oxygen Delivery Method Room Air Weight: 209 lb 7.026 oz Body Mass Index (BMI) 38.2 Intake and Output for Last 24 Hours 07/11/19 07/12/19 07/13/19 23:59 23:59 23:59 Intake Total 2331.67 / 2331.67 Output Total 750 / 750 Balance 1581.67 / 1581.67 Microbiology Past 72 Hours 07/10/19 17:00 Enteric Bacteriology - Final Stool Medical Necessity - Tobacco Use Smoking Status: Former smoker Assessment/Plan Assessment: POD #3 Stable post op well Post OP acute blood loss anemia Plan: Discussed contraceptive options, considering Nexplanon, will revisit at post op visit Discussed discharge instructions, warning signs, s/s to report Questions answered Discharge home today Follow up in office in two weeks
--- NOTE | 2019-07-13 12:50 | DS.PCM_ITS ---
Discharge Date and Diagnosis Date of Admission: 07/09/19 - 36 4/7 wk SROM Date of Discharge: 07/13/19 - S/P primary C section, failure to progress Hospital Course and Treatment Operations: - - augmentation of labor. Primary C section for failure to progress beyond 6 cm Summary of Care Provided: The patient is a 34 year old female 36 weeks and 4 days gestation with spontaneous rupture membrane and in early labor. Progressed to 6 cm and arrest of dilation for more than 6 hrs. Primary C section 5# 15 oz. female Ap 8/9 Procedure uncomplicated. Preop Hgb 11.4 g/dl Postop hgb 7.7 g/dl. Started on iron for acute blood loss anemia. Home on POD#3 Exam benign. RTO in 2 wk for postop check. - Physical Exam Vital Signs Temp Pulse Resp BP Pulse Ox 98.4 F 77 16 126/79 H 96 07/13/19 09:12 07/13/19 09:12 07/13/19 09:12 07/13/19 09:12 07/13/19 09:12 Oxygen Delivery Method Room Air Weight: 95 kg Body Mass Index (BMI) 38.2 Intake and Output for Last 24 Hours 07/11/19 07/12/19 07/13/19 23:59 23:59 23:59 Intake Total 2331.67 / 2331.67 Output Total 750 / 750 Balance 1581.67 / 1581.67 Microbiology Past 72 Hours 07/10/19 17:00 Enteric Bacteriology - Final Stool Discharge Diet: No Restrictions Discharge Activity: May not drive while taking narcotic pain medications., May Shower, May Take a Tub Bath May resume sexual activity in: 4-6 weeks Additional Activity Instructions:: Nothing in the vagina for 4-6 weeks. You may return to work/school in 6 weeks. Change Dressing in (Days):: 7 Remove Dressing in (days):: 7 Cleanse incision/area with: Soap & Water, Keep Dressing Clean & Dry Home Medications: Medications to take at Discharge Ibuprofen [Motrin] 800 mg PO TID PRN PRN #30 tablet 07/29/17 Oxycodone [Oxyir] 5 mg PO Q4H PRN PRN #10 tablet 07/29/17 Docusate Sodium [Colace] 100 mg PO BID #30 cap 07/10/19 Naproxen [Naprosyn] 250 - 500 mg PO TID PRN PRN #30 tab 07/10/19 Oxycodone [Oxyir] 5 - 10 mg PO Q6H PRN PRN 3 Days #15 tab 07/10/19 Polyethylene Glycol 3350 [Miralax] 17 gm PO DAILY PRN #14 packet 07/10/19 Following Prescrptions Were Given to Patient: Docusate Sodium [Colace] 100 mg PO BID #30 cap Transmission Status: Received by [facility] Polyethylene Glycol 3350 [Miralax] 17 gm PO DAILY PRN #14 packet PRN Reason: Constipation Transmission Status: Sent to [facility] Naproxen [Naprosyn] 250 - 500 mg PO TID PRN PRN #30 tab PRN Reason: Mild-Mod Pain (1-5/10) Transmission Status: Received by [facility] Oxycodone [Oxyir] 5 - 10 mg PO Q6H PRN PRN 3 Days #15 tab PRN Reason: Mod-Severe Pain (4-10/10) Transmission Status: Received by [facility] Please Follow Up With: Pamela Traylor MD - [phone] When: Call to make an appointment for an incision check in 2 weeks. Medical Necessity - Tobacco Use Smoking Status: Former smoker Meaningful Use Info Meaningful Use Diagnoses (Choose all that apply): None applicable
[2019-07-13 14:12] VITALS: BP 139/83; PULSE 72; RESP 16; TEMP 37; O2SAT 97
[2019-07-13] MEDS: Ferrous Sulfate 325 MG Tablet PO (14:16)
== END 2019-07-13 17:50 | disposition home or self-care (01) | DRG 786 ==
PROVIDERS: Obstetrics & Gynecology; Admitting Provider Obstetrics & Gynecology; Referring Provider Obstetrics & Gynecology; Visit Provider Obstetrics & Gynecology
DX: O62.0 Primary inadequate contractions (principal); O60.14X0 Preterm labor third trimester with preterm delivery third trimester, not applicable or unspecified; D62 Acute posthemorrhagic anemia; O76 Abnormality in fetal heart rate and rhythm complicating labor and delivery; Z3A.36 36 weeks gestation of pregnancy; Z37.0 Single live birth; Z87.891 Personal history of nicotine dependence; O99.02 Anemia complicating childbirth; O99.52 Diseases of the respiratory system complicating childbirth; J30.2 Other seasonal allergic rhinitis
CPT/HCPCS: 59025; 59050; 85025; 85027; 86850; 86900; 86901; 87506; 99218; J7120; A4216; G0378; J0702; J2405

== ENCOUNTER → 2020-09-02 16:42 | Outpatient (CLI) | payer BC, SELFPAY ==
[2020-09-06 17:17] LABS: HPV Reflexed? NOT INDICATED
== END ==
PROVIDERS: PCP Obstetrics & Gynecology; Visit Provider Obstetrics & Gynecology
DX: Z12.4 Encounter for screening for malignant neoplasm of cervix (principal)
CPT/HCPCS: 88175; G0145